=== PATIENT | male | born 1950 | race African-American/Black ===

== ENCOUNTER 2024-07-22 14:50 | Emergency (ER) | payer MEDICARE, MEDICAID ==
[~2024-07-22] VITALS: Ht 170.2 cm; Wt 60.0 kg
[2024-07-22 14:52] VITALS: BP 116/70; TEMP 37.3; O2SAT 98
[2024-07-22 15:00] VITALS: PULSE 60; RESP 16
[2024-07-22] MEDS ORDERED: METHYLPREDNISOLONE SOD SUCC 125MG/2ML (ACT-O-VIAL) IV ONE (15:15)
[2024-07-22] MEDS ORDERED: SODIUM CHLORIDE 0.9% 1,000 ML IV ONE (15:15)
[2024-07-22] MEDS ORDERED: AZITHROMYCIN 500MG/250ML 250 ML IV ONE (15:15)
[2024-07-22] MEDS ORDERED: IPRATROPIUM/ALBUTEROL 0.5-3(2.5)MG/3ML NEB HHN ONE (15:15)
[2024-07-22] MEDS ORDERED: ALBUTEROL (0.083%) 2.5MG/3ML NEB HHN ONE (15:15)
[2024-07-22] MEDS ORDERED: VANCOMYCIN 1G PREMIX 200 ML IV ONE (15:15)
[2024-07-22] MEDS ORDERED: PIPERACILLIN/TAZO 3.375G/50ML 50 ML IV ONE (15:15)
[2024-07-22] MEDS ORDERED: DEXTROSE 50% WATER 50ML SYRINGE IV ONE (15:28)
[2024-07-22] MEDS ORDERED: EPINEPHRINE 0.1MG/ML (1:10,000) 10ML SYR ONE (15:38)
== END 2024-07-22 15:41 ==
LOC: ER 15:02
DX: I46.9 Cardiac arrest, cause unspecified (principal); J18.9 Pneumonia, unspecified organism; J44.1 Chronic obstructive pulmonary disease with (acute) exacerbation; F19.90 Other psychoactive substance use, unspecified, uncomplicated
CPT/HCPCS: 99285; 94070; 31500; 71045; 82962; 93005; J3490; J7030